=== PATIENT | female | born 1990 | race Two or more races ===

== ENCOUNTER → 2020-03-04 | Outpatient (CLI) | payer OTHER | END | disposition home or self-care (01) | LOC: PPH VACUNA 09:00 | DX: Z23 Encounter for immunization (principal) ==

== ENCOUNTER → 2020-03-30 06:27 | Outpatient (CLI) | payer OTHER | END | disposition home or self-care (01) | LOC: LAB 06:27 | PROVIDERS: ATTEND Obstetrics & Gynecology | DX: E03.8 Other specified hypothyroidism (principal); D64.89 Other specified anemias; Z12.11 Encounter for screening for malignant neoplasm of colon; N95.1 Menopausal and female climacteric states; I10 Essential (primary) hypertension; C51.8 Malignant neoplasm of overlapping sites of vulva; N30.00 Acute cystitis without hematuria; A64 Unspecified sexually transmitted disease; R97.8 Other abnormal tumor markers; E55.9 Vitamin D deficiency, unspecified; A60.1 Herpesviral infection of perianal skin and rectum ==

== ENCOUNTER 2020-06-01 08:43 | Outpatient (CLI) | payer OTHER | END 2020-06-01 18:00 | disposition home or self-care (01) | LOC: PPH VACUNA 08:43 | DX: Z23 Encounter for immunization (principal) ==

== ENCOUNTER 2021-03-18 15:45 | Outpatient (CLI) | payer OTHER | END 2021-03-18 16:00 | disposition home or self-care (01) | LOC: PPH VACUNA 15:45 | PROVIDERS: ATTEND Emergency Medicine Pediatric Emergency Medicine | DX: Z23 Encounter for immunization (principal) ==

== ENCOUNTER → 2023-10-02 15:09 | Outpatient (CLI) | payer OTHER | END | disposition home or self-care (01) | LOC: PRENATAL 15:09 | PROVIDERS: ATTEND Obstetrics & Gynecology Maternal & Fetal Medicine | DX: O36.80X0 Pregnancy with inconclusive fetal viability, not applicable or unspecified (principal); Z36.82 Encounter for antenatal screening for nuchal translucency; Z36.9 Encounter for antenatal screening, unspecified; Z3A.13 13 weeks gestation of pregnancy ==

== ENCOUNTER → 2024-02-11 09:03 | Outpatient (CLI) | payer OTHER | END | disposition home or self-care (01) | LOC: PRENATAL 09:03 | PROVIDERS: ATTEND Obstetrics & Gynecology Maternal & Fetal Medicine | DX: O36.8199 Decreased fetal movements, unspecified trimester, other fetus (principal); O26.849 Uterine size-date discrepancy, unspecified trimester; Z3A.31 31 weeks gestation of pregnancy ==

== ENCOUNTER 2024-03-06 09:18 | Outpatient (CLI) | payer OTHER | END 2024-03-06 09:19 | disposition home or self-care (01) | LOC: PRENATAL 09:18 | PROVIDERS: ATTEND Obstetrics & Gynecology Maternal & Fetal Medicine | DX: O26.849 Uterine size-date discrepancy, unspecified trimester (principal); O36.8199 Decreased fetal movements, unspecified trimester, other fetus; Z3A.35 35 weeks gestation of pregnancy ==

== ENCOUNTER 2024-03-10 13:38 | Inpatient (IN) | payer OTHER ==
[~2024-03-10] VITALS: Ht 165.1 cm; Wt 82.1 kg
[2024-03-10 14:06] VITALS: BP 106/69
[2024-03-10] MEDS ORDERED: PRENATAL TABLE1 EAC1 PO (14:20)
[2024-03-10] MEDS ORDERED: BETAMETHASONE ACETATE,SOD PHOS 30 MG/5 ML ML IM ONE (14:25)
[2024-03-10] MEDS ORDERED: AMPICILLIN SODIUM 2,000 MG VIAL IV STA (14:31)
[2024-03-10] MEDS ORDERED: RINGERS SOLUTION,LACTATED 1,000 ML IV SCH (14:45)
[2024-03-10 15:02] LABS: PH,URINE 6.5 (5.0-8.0); URINE APPEARANCE Cloudy; URINE BILIRRUBIN Negative (NEGATIVE); URINE BLOOD Moderate; URINE COLOR Yellow; URINE GLUCOSE Negative (NEGATIVE); URINE KETONE Negative (NEGATIVE); URINE LEUKOCYTE Large; URINE NITRATE Negative; URINE PROTEIN Negative (NEGATIVE); URINE UROBILINOGEN 0.2 E.U./dl
[2024-03-10 15:13] LABS: HEMATOCRIT 34.1 % (36.0-45.00); HEMOGLOBIN 11.9 g/dL (12.0-15.00); MEAN CELL VOLUME 83.7 fL (80.00-100.00); MEAN CORPUSCULAR HEMOGLOBIN 29.1 pg (27.00-32.0); MEAN CORPUSCULAR HGB CONC 34.8 g/dl (32.0-36.0); PLATELET COUNT 167 K/uL (150-450); RED BLOOD COUNT 4.08 M/uL (4.00-6.00); RED CELL DISTRIBUTION WIDTH 12.9 % (11.5-14.5)
[2024-03-10 15:27] VITALS: BP 101/66
[2024-03-10 15:34] LABS: ALBUMIN 2.5 gm/dL (3.4-5.0); BILIRUBIN TOTAL 0.66 mg/dL (0.3-1.2); CALCIUM 8.4 mg/dL (8.5-10.1); CREATININE SERUM 0.75 mg/dL (0.55-1.02); GFR 90.13; GLOBULINA 3.7 G/DL (2.4-3.5); POTASSIUM 3.62 mEq/L (3.5-5.1); TOTAL PROTEIN 6.2 gm/dL (6.4-8.2); URINE BACTERIA 2716.4 uL (0.0-1933); URINE EPITHELIAL CELLS 47.4 uL (0.0-38.8); URINE WBC 234.7 uL (0.0-23.2)
[2024-03-10 15:47] LABS: URINE CAST 0.15 uL (0.0-1.40); URINE YEAST FEW /hpf
[2024-03-10 16:05] LABS: INR 0.99; PROTHROMBIN TIME 10.8 SECONDS (9.0-11.5)
[2024-03-10 16:06] LABS: PARTIAL THROMBOPLASTIN TIME 32.4 SECONDS (22.0-34.0)
[2024-03-10] MEDS ORDERED: AMPICILLIN SODIUM 1,000 MG VIAL IV SCH (17:00)
[2024-03-10 20:00] VITALS: BP 97/59
[2024-03-10 23:42] VITALS: BP 109/69
[2024-03-11 03:17] VITALS: BP 103/61; O2SAT 99
[2024-03-11 06:10] VITALS: BP 102/67; O2SAT 98
[2024-03-11 12:43] VITALS: BP 110/71; O2SAT 99
[2024-03-11] MEDS ORDERED: BETAMETHASONE ACETATE,SOD PHOS 30 MG/5 ML ML IM NR (14:00)
[2024-03-11 15:39] VITALS: BP 108/70
[2024-03-11 19:32] VITALS: BP 113/73
[2024-03-12 01:20] VITALS: BP 100/60
[2024-03-12 09:59] VITALS: BP 120/78; O2SAT 99
== END 2024-03-12 12:30 | disposition home or self-care (01) | DRG 833 ==
LOC: LDR 13:38 → OB/GYN 03-11 16:38
PROVIDERS: ADMIT Obstetrics & Gynecology; ATTEND Obstetrics & Gynecology
PROC: 4A1HXCZ Monitoring of Products of Conception, Cardiac Rate, External Approach (ICD-10-PCS; principal; 2024-03-10)
PROC: BY4FZZZ Ultrasonography of Third Trimester, Single Fetus (ICD-10-PCS; 2024-03-11)
DX: O60.03 Preterm labor without delivery, third trimester (principal); O36.8130 Decreased fetal movements, third trimester, not applicable or unspecified; Z3A.36 36 weeks gestation of pregnancy; Z20.822 Contact with and (suspected) exposure to COVID-19

== ENCOUNTER 2024-03-17 05:15 | Inpatient (IN) | payer OTHER ==
[2024-03-17] VITALS (11 sets, daily range): BP systolic 119–136; BP diastolic 68–82; O2SAT 99
[~2024-03-17] VITALS: Ht 165.1 cm; Wt 79.4 kg
[~2024-03-17 05:15] MED LIST: PRENATAL TABLE1 EAC1 PO
[2024-03-17] MEDS ORDERED: RINGERS SOLUTION,LACTATED 1,000 ML IV SCH (05:45)
[2024-03-17] MEDS ORDERED: AMPICILLIN SODIUM 2,000 MG VIAL IV ONE (05:45)
[2024-03-17 06:22] LABS: HEMATOCRIT 35.2 % (36.0-45.00); HEMOGLOBIN 12.2 g/dL (12.0-15.00); MEAN CELL VOLUME 83.3 fL (80.00-100.00); MEAN CORPUSCULAR HGB CONC 34.8 g/dl (32.0-36.0); PLATELET COUNT 182 K/uL (150-450); RED BLOOD COUNT 4.23 M/uL (4.00-6.00); RED CELL DISTRIBUTION WIDTH 12.9 % (11.5-14.5)
[2024-03-17 06:46] LABS: INR 0.97; PROTHROMBIN TIME 10.6 SECONDS (9.0-11.5)
[2024-03-17 07:00] LABS: URINE APPEARANCE Clear; URINE BILIRRUBIN Negative (NEGATIVE); URINE BLOOD Moderate; URINE COLOR Yellow; URINE GLUCOSE Negative (NEGATIVE); URINE KETONE Negative (NEGATIVE); URINE LEUKOCYTE Large; URINE NITRATE Negative; URINE PROTEIN Negative (NEGATIVE); URINE UROBILINOGEN 0.2 E.U./dl
[2024-03-17 07:02] LABS: URINE CAST 1.98 uL (0.0-1.40); URINE EPITHELIAL CELLS 41.8 uL (0.0-38.8); URINE WBC 523.2 uL (0.0-23.2)
[2024-03-17] MEDS ORDERED: OXYTOCIN 20 UNITS/500ML RL PIGGYBAG IV SCH (07:15)
[2024-03-17 07:37] LABS: URINE BACTERIA > 9821.5 uL (0.0-1933)
[2024-03-17 07:38] LABS: URINE CRYSTALS FEW /HPF; URINE YEAST FEW /hpf
[2024-03-17] MEDS ORDERED: AMPICILLIN SODIUM 1,000 MG VIAL IV SCH (08:00)
[2024-03-17] MEDS ORDERED: ONDANSETRON HCL 2 MG/ML VIAL IV ONE (08:00)
[2024-03-17] MEDS ORDERED: MORPHINE SULFATE 4 MG/ML VIAL IV ONE (09:00)
[2024-03-17] MEDS ORDERED: METHYLERGONOVINE MALEATE 0.2 MG/ML AMPUL IV STA (11:58)
[2024-03-17] MEDS ORDERED: CHLORHEXIDINE GLUCONATE 120 ML BOTTLE TP SCH (12:00)
[2024-03-17] MEDS ORDERED: OXYTOCIN 1,000 ML IV SCH (12:00)
[2024-03-17] MEDS ORDERED: IBUprofen 400 MG TABLET PO PRN (12:00)
[2024-03-17] MEDS ORDERED: METHYLERGONOVINE MALEATE 0.2 MG/ML AMPUL IM STA (12:27)
[2024-03-17] MEDS ORDERED: LIDOCAINE HCL 1% 10ML VIAL IJ ONE (12:30)
[2024-03-17] MEDS ORDERED: ERYTHROMYCIN BASE OPHT 1GM EACH TUBE OP ONE (12:30)
[2024-03-18 00:30] VITALS: BP 105/66
[2024-03-18 06:35] LABS: HEMATOCRIT 30.7 % (36.0-45.00); HEMOGLOBIN 10.6 g/dL (12.0-15.00); MEAN CELL VOLUME 83.3 fL (80.00-100.00); MEAN CORPUSCULAR HEMOGLOBIN 28.8 pg (27.00-32.0); MEAN CORPUSCULAR HGB CONC 34.5 g/dl (32.0-36.0); PLATELET COUNT 153 K/uL (150-450); RED BLOOD COUNT 3.68 M/uL (4.00-6.00); RED CELL DISTRIBUTION WIDTH 12.9 % (11.5-14.5)
[2024-03-18] MEDS ORDERED: OXYTOCIN 500 ML IV SCH (07:15)
[2024-03-18 08:13] VITALS: BP 119/68
[2024-03-18] MEDS ORDERED: PNV,CALCIUM 72/IRON/FOLIC ACID 1 TAB TABLET PO SCH (09:00)
[2024-03-18 13:25] VITALS: BP 114/60
[2024-03-18 16:10] VITALS: BP 116/76
[2024-03-19 00:32] VITALS: BP 116/78
[2024-03-19 08:10] VITALS: BP 124/66
[2024-03-19] MEDS ORDERED: MEASLES,MUMPS,RUBELLA VACC/PF 1 VIAL VIAL SUBCUTANEO SCH (13:30)
== END 2024-03-19 15:06 | disposition home or self-care (01) | DRG 807 ==
LOC: LDR 05:15 → OB/GYN 13:05
PROVIDERS: ADMIT Obstetrics & Gynecology; ATTEND Obstetrics & Gynecology
PROC: 10E0XZZ Delivery of Products of Conception, External Approach (ICD-10-PCS; principal; 2024-03-17)
PROC: 0UQG7ZZ Repair Vagina, Via Natural or Artificial Opening (ICD-10-PCS; 2024-03-17)
PROC: 4A1HXCZ Monitoring of Products of Conception, Cardiac Rate, External Approach (ICD-10-PCS; 2024-03-17)
DX: O71.4 Obstetric high vaginal laceration alone (principal); Z37.0 Single live birth; Z3A.37 37 weeks gestation of pregnancy; Z20.822 Contact with and (suspected) exposure to COVID-19